=== PATIENT | female | born 1995 | race Asian ===

== ENCOUNTER 2023-06-14 11:04 | Outpatient (CLI) | payer BC | END 2023-06-14 11:05 | disposition home or self-care (01) | LOC: BICRAD 11:04 | PROVIDERS: ATTEND Family Medicine | DX: M53.3 Sacrococcygeal disorders, not elsewhere classified (principal) | CPT/HCPCS: 72220 ==

== ENCOUNTER 2023-07-03 15:20 | Outpatient (CLI) | payer BC | END 2023-07-03 15:21 | disposition home or self-care (01) | LOC: SCSMRI 15:20 | PROVIDERS: ATTEND Orthopaedic Surgery | DX: M54.16 Radiculopathy, lumbar region (principal) | CPT/HCPCS: 72148 ==